=== PATIENT | male | born 1970 | race Caucasian/White ===

== ENCOUNTER → 2019-04-21 | Outpatient (CLI) | payer OTHER ==
[~2019-04-21] MED LIST: ALPR1TAB10 PO; ATOR10TA PO; FENO145T32 PO; OMEG1CAP2 PO; OXYC20TA2 PO; POLY17PO5 PO; SENN8.6C2 PO; VALP250C59 PO
== END | disposition home or self-care (01) ==
LOC: CFH 15:37
PROVIDERS: ATTEND Family Medicine
DX: Z12.2 Encounter for screening for malignant neoplasm of respiratory organs (principal); F17.210 Nicotine dependence, cigarettes, uncomplicated
CPT/HCPCS: G0297

== ENCOUNTER 2019-12-18 15:04 | Emergency (ER) | payer BC, OTHER ==
[~2019-12-18] VITALS: Ht 170.2 cm; Wt 68.0 kg
[2019-12-18 16:17] LABS: BASOPHILS # (AUTO) 0.03 x10^3/uL (0-0.1); BASOPHILS % (AUTO) 0 % (0-1); EOSINOPHILS # (AUTO) 0.03 x10^3/uL (0-0.4); EOSINOPHILS % (AUTO) 0 % (1-7); LYMPHOCYTES % (AUTO) 37 % (22-44); MD NO; MEAN CORPUSCULAR HEMOGLOBIN 30.6 pg (27.5-34.5); MEAN CORPUSCULAR HGB CONC 33.9 g/dL (33.2-36.2); MEAN CORPUSCULAR VOLUME 90.4 fL (81-97); MEAN PLATELET VOLUME 10.4 fL (7.4-10.4); MONOCYTES # (AUTO) 0.59 x10^3/uL (0.2-0.8); MONOCYTES % (AUTO) 9 % (2-9); NEUTROPHILS # (AUTO) 3.62 x10^3/uL (1.8-6.8); NEUTROPHILS % (AUTO) 54 % (42-75); PLATELET COUNT 176 x10^3/uL (130-400); RED BLOOD COUNT 5.29 x10^6/uL (4.38-5.82)
[2019-12-18 16:27] LABS: ALANINE AMINOTRANSFERASE 25 U/L (12-78); ALBUMIN 4.1 g/dL (3.4-5.0); ANION GAP 5 mmol/L (5-15); CALCIUM 8.9 mg/dL (8.5-10.1); CHLORIDE 107 mmol/L (98-107); CREATININE 1.04 mg/dL (0.7-1.3)
[2019-12-18 16:29] LABS: ALKALINE PHOSPHATASE 51 U/L (45-117); BILIRUBIN,TOTAL 0.4 mg/dL (0.2-1.0); TOTAL PROTEIN 7.8 g/dL (6.4-8.2)
[2019-12-18] MEDS ORDERED: LORazepam 2 MG/ML, 1ML ONE (21:11)
[2019-12-18 21:27] LABS: TROPONIN I < 0.015 ng/mL (0.000-0.045)
[2019-12-18] MEDS ORDERED: LORazepam 2 MG/ML, 1ML IM ONE (21:30)
--- NOTE | 2019-12-18 21:55 | NUR ---
PT STATING HE IS FEELING MUCH BETTER. MONITOR IN PLACE. NO NEEDS AT THIS TIME.
[2019-12-18 23:15] VITALS: BP 145/70
== END 2019-12-18 23:43 | disposition home or self-care (01) ==
LOC: ED 23:20
DX: F41.1 Generalized anxiety disorder (principal); R07.89 Other chest pain; R00.1 Bradycardia, unspecified; Z76.0 Encounter for issue of repeat prescription; E78.5 Hyperlipidemia, unspecified; Z87.891 Personal history of nicotine dependence
CPT/HCPCS: 36415; 71045; 80053; 83690; 84443; 84484; 85025; 93005; 96372; 99285; J2060